=== PATIENT | female | born 1990 | race Caucasian/White ===

== ENCOUNTER 2018-12-17 15:36 | Emergency (ER) | payer SELFPAY ==
[~2018-12-17] VITALS: Ht 172.7 cm; Wt 127.0 kg
--- NOTE | 2018-12-17 15:51 | ED Dyspnea ---
General Stated Complaint: COUGH, SOB, SHARP CHEST PAIN, WHEEZING Source of Information: Patient, RN Notes Reviewed Exam Limitations: No Limitations History of Present Illness Date Seen by Provider: Dec 17, 2018 Time Seen by Provider: 15:50 Initial Comments Patient presents c/ c/o worsening cough, dyspnea, and chest pain x 5 days. Pain is sharp. Cough is productive. (+) fever. Has significant respiratory history including an empyema resulting in surgery. (+) smoker. Has tried several OTC meds s/ benefit. Timing/Duration: Constant, Other (x 5 days) Severity: Moderate Activities at Onset: None Prior Episodes/Possible Cause: Other ((+) prior episodes (see above)) Modifying Factors: Worse With Coughing Associated Symptoms: Chest Pain (sharp; 6/10), Cough (productive), Fever, Wheezing Allergies and Home Medications Allergies Coded Allergies: benzonatate (Unverified Adverse Reaction, Unknown, 12/17/18) Uncoded Allergies: PENICILLIN (Adverse Reaction, Mild, HIVES, 12/17/18) SULFA (Adverse Reaction, Mild, HIVES, 12/17/18) MUSCLE RELAXANTS (Adverse Reaction, Unknown, 12/17/18) REQUESTS NO MUSCLE RELAXANTS Home Medications Albuterol Sulfate 1 Puff Puff, 2 PUFF IH Q4H PRN for DYSPNEA 1 PUFF = 90 MCG Prescribed by: RACHAEL BALLARD on 12/17/18 171 Azithromycin 250 Mg Tablet, 250 MG PO DAILY Prescribed by: RACHAEL BALLARD on 12/17/18 171 Cephalexin 500 Mg Capsule, 500 MG PO TID Prescribed by: RACAHEL BALLARD on 12/17/18 171 Prednisone 20 Mg Tab, 30 MG PO BID Prescribed by: RACHAEL ABLLARD on 12/17/18 171 Patient Home Medication List Home Medication List Reviewed: Yes Review of Systems Review of Systems Constitutional: see HPI, fever Respiratory: see HPI, cough, dyspnea on exertion, phlegm, short of breath, wheezing Cardiovascular: see HPI, chest pain : No All Other Systems Reviewed Negative Unless Noted: Yes (Negative excepted noted.) Past [id number] Hx Patient Social History Recent Foreign Travel: No Contact w/Someone Who Travel: No Physical Exam Vital Signs Vital Signs - First Documented 12/17/18 15:45 Temp 100.2 Pulse 102 Resp 22 B/P (MAP) 164/103 (123) Pulse Ox 98 O2 Delivery Room Air Capillary Refill : Height, Weight, BMI Height: '" Weight: lbs. oz. kg; BMI Method: General Appearance: WD/WN, Mild Distress, Obese HEENT: Normal ENT Inspection Neck: Normal Inspection Respiratory: Decreased Breath Sounds Cardiovascular: Tachycardia Rectal: Deferred Neurologic/Psychiatric: Alert, Oriented x3, No Motor/Sensory Deficits, Depressed Affect Skin: Warm/Dry Progress/Results/Core Measures Results/Orders My Orders Orders - RACHAEL BALLARD DO Chest Pa/Lat (2 View) (12/17/18 16:03) Dexamethasone Injection (Decadron Inject (12/17/18 16:45) Albuterol/Ipra Inhalation Soln (Duoneb I (12/17/18 16:45) Svn Small Volume Nebulizer (12/17/18 16:41) Ceftriaxone For Im Use (Rocephin For Im (12/18/18 09:00) Lidocaine 1% Inj 20 Ml (Xylocaine 1% Inj (12/17/18 16:45) Azithromycin Tablet (Zithromax Tablet) (12/17/18 16:45) Prednisone Tablet (Deltasone Tablet) (12/17/18 16:45) Ceftriaxone For Im Use (Rocephin For Im (12/17/18 16:52) Dexamethasone Injection (Decadron Inject (12/17/18 17:11) Albuterol/Ipra Inhalation Soln (Duoneb I (12/17/18 16:52) Azithromycin Tablet (Zithromax Tablet) (12/17/18 16:52) Prednisone Tablet (Deltasone Tablet) (12/17/18 16:52) Vital Signs/I&O 12/17/18 12/17/18 12/17/18 15:45 15:45 17:30 Temp 100.2 100.5 Pulse 102 110 Resp 22 22 B/P (MAP) 164/103 (123) 156/87 (110) Pulse Ox 98 98 O2 Delivery Room Air Room Air Room Air Progress Progress Note : Progress Note Seems improved p/ Duoneb Diagnostic Imaging Diagonstic Imaging: Xray Plain Films/CT/US/NM/MRI: chest (RLL pneumonia) Departure Impression Primary Impression: RLL pneumonia Additional Impression: Tobacco abuse Disposition: 01 HOME, SELF-CARE Condition: Stable Departure-Patient Inst. Decision time for Depature: 17:06 Referrals: [facility] [place] Patient Instructions: Pneumonia, Adult (DC) Scripts Albuterol Sulfate (PROAIR HFA) 1 Puff Puff 2 PUFF IH Q4H PRN for DYSPNEA, #1 PUFF 0 Refills 1 PUFF = 90 MCG Prov: RACHAEL BALLARD DO 12/17/18 Prednisone (Prednisone) 20 Mg Tab 30 MG PO BID for 5 Days, #15 TAB 0 Refills Prov: RACHAEL BALLARD DO 12/17/18 Azithromycin (Azithromycin) 250 Mg Tablet 250 MG PO DAILY for 4 Days, #4 TAB 0 Refills Prov: RACHAEL BALLARD DO 12/17/18 Cephalexin (Keflex) 500 Mg Capsule 500 MG PO TID for 10 Days, #30 CAP 0 Refills Prov: RACHAEL BALLARD DO 12/17/18 RACHAEL BALLARD DO Dec 17, 2018 15:51
--- NOTE | 2018-12-17 16:33 | Diagnostic Imaging Report ---
EXAMINATION: Chest 2 view HISTORY: Cough. FINDINGS: No comparison available. Right middle lobe and lower lobe airspace opacities may represent atelectasis but could be pneumonia. No pneumothorax. No edema. No pleural effusion. Heart size is normal. IMPRESSION: 1. Possible right lung base pneumonia, less likely atelectasis. Dictated by: Dictated on workstation # [id number]
[2018-12-17] MEDS ORDERED: RT-ALBUTEROL/IPRATROPIUM 3 ML (DUONEB) VIAL INH ONE (16:45)
[2018-12-17] MEDS ORDERED: LIDOCAINE 1% INJ 20 ML 20 ML VIAL INJ ONE (16:45)
[2018-12-17] MEDS ORDERED: AZITHROMYCIN 250 MG TAB (ZITHROMAX) PO ONE ×2 (16:45→16:52)
[2018-12-17] MEDS ORDERED: DEXAMETHASONE 10 MG/ML (DECADRON) 1 ML VIAL IM ONE (16:45)
[2018-12-17] MEDS ORDERED: predniSONE 20 MG TAB PO ONE (16:45)
[2018-12-17] MEDS ORDERED: RT-ALBUTEROL/IPRATROPIUM 3 ML (DUONEB) VIAL ONE (16:52)
[2018-12-17] MEDS ORDERED: cefTRIAXone 1,000 MG/2.86 ml vial (IM ONLY) ONE (16:52)
[2018-12-17] MEDS ORDERED: predniSONE 20 MG TAB ONE (16:52)
[2018-12-17] MEDS ORDERED: CEPH-507 PO (17:10)
[2018-12-17] MEDS ORDERED: AZIT250T12 PO (17:10)
[2018-12-17] MEDS ORDERED: PRD20T PO (17:10)
[2018-12-17] MEDS ORDERED: RT-ALBUINH IH (17:10)
[2018-12-17] MEDS ORDERED: DEXAMETHASONE 10 MG/ML (DECADRON) 1 ML VIAL ONE (17:11)
[2018-12-17 17:30] VITALS: BP 156/87
[2018-12-18] MEDS ORDERED: cefTRIAXone 1,000 MG/2.86 ml vial (IM ONLY) IM SCH (09:00)
== END 2018-12-17 17:30 | disposition home or self-care (01) ==
LOC: ER FS 15:38
DX: J18.1 Lobar pneumonia, unspecified organism (principal); J43.9 Emphysema, unspecified; F17.200 Nicotine dependence, unspecified, uncomplicated; Z88.0 Allergy status to penicillin; Z88.2 Allergy status to sulfonamides; Z88.8 Allergy status to other drugs, medicaments and biological substances
CPT/HCPCS: 71046; 94640; 96372